=== PATIENT | male | born 1985 | race Caucasian/White ===

== ENCOUNTER 2022-10-29 12:18 | Emergency (ER) | payer OTHER, MEDICAID, SELFPAY ==
[2022-10-29 12:22] VITALS: BP 150/97; PULSE 96; RESP 18; TEMP 36.3; O2SAT 94; BMI 55.1
--- NOTE | 2022-10-29 12:41 | CRLHL7_ITS ---
For Patients: As a result of the Century Cures Act, medical imaging exams and procedure reports are released immediately into your electronic medical record. You may view this report before your referring provider. If you have questions, please contact your health care provider. INDICATION: Leg pain and swelling. TECHNIQUE: Ultrasound venous duplex lower left extremity. Compression venous exam was performed using clancy-scale, color Doppler, and spectral Doppler analysis. COMPARISON: None. FINDINGS: Deep veins: Sonographic imaging demonstrates the left common femoral, deep femoral, superficial femoral, popliteal, posterior tibial and the contralateral right common femoral veins to be fully compressible with normal color Doppler blood flow. Superficial veins: Greater saphenous vein is fully compressible. No popliteal cyst. IMPRESSION: Normal left lower extremity venous ultrasound, no sign of deep venous thrombosis. Dictated by Rajesh St MD @ 10/29/2022 4:06:20 PM (Electronically Signed)
--- NOTE | 2022-10-29 12:42 | ED_ITS ---
HPI - General Adult General Chief complaint: Extremity Pain/Injury, Lower Stated complaint: Possible blood clot L leg Time Seen by Provider: 10/29/22 12:19 History of Present Illness HPI narrative: This 36-year-old male comes in for evaluation of symptoms in his left lower extremity. He states that he developed erythema, pain, and some swelling starting yesterday morning. He does not report any specific injury event but states that he had been off of work for about a week and then return to a 10 hour shift where he was on his feet most of the time. He does not have a history of blood clot. He arrives with normal oximetry, pulse, and respirations. Related Data Home Medications Medication Instructions Recorded Confirmed gemfibrozil 600 mg tablet mg 10/29/22 hydrochlorothiazide 25 mg tablet 25 mg PO DAILY 10/29/22 10/29/22 lisinopril 10 mg tablet mg 10/29/22 Previous Rx's Medication Instructions Recorded cephalexin 500 mg capsule 500 mg PO TID 7 days #21 caps 10/29/22 Allergies Allergy/AdvReac Type Severity Reaction Status Date / Time No Known Drug Allergies Allergy Verified 07/17/22 09:19 Review of Systems Status of ROS: Reports: 10 or more systems reviewed and unremarkable except as noted in History and below Narrative: Constitutional: No fevers, no weight gain or loss. Eyes: No discharge. No vision changes. HENT: No congestion, no sore throat, no ear pain. Cardiovascular: No chest pain, no palpitations. Respiratory: No shortness of breath, no wheezes, no cough. Gastrointestinal: No abdominal pain, no vomiting, no diarrhea. Genitourinary: No dysuria, no hematuria. Musculoskeletal: Normal range of motion. Left lower extremity erythema and pain below the knee. Skin: No rashes, no pruritis. Neurological: No dizziness, weakness, sensory change, speech change. Endo/Heme/Allergies: No bruising or bleeding. No polydipsia. Pysch: no suicidality, no anxiety, no insomnia. All other systems reviewed and are negative. [facility] Medical History (Updated 10/29/22 @ 13:15 by Usama Browning MD) AOM (acute otitis media) URI (upper respiratory infection) Social History Smoking Status: Former smoker Do you use any of these nicotine containing products: None Second hand tobacco smoke exposure: No How often do you have a drink containing alcohol: never AUDIT-C Alcohol total score: 0 Non-prescribed substance use: denies use service: No Exam Narrative: Exam Narrative: Constitutional: Well-developed, well-nourished, no acute distress. HEENT: Normocephalic, atraumatic. Neck: Normal range of motion. Nontender. Supple. Heart: Regular. No murmurs. Normal rate. Intact distal pulses. Lungs: Clear to auscultation. No chest discomfort. No wheezes, rhonchi, or rales. Abdomen: Normal bowel sounds. Nontender. No rebound tenderness. Genitalia: Deferred. Back: No midline tenderness. Normal range of motion. Extremities: Normal range of motion. No injury. Left lower extremity has diffuse erythema and mild swelling starting below the knee and extending to his foot. Skin: Intact. No rash. Warm. No erythema or pallor. Neurologic: No altered sensation. No weakness. Alert and oriented. Psychiatric: No suicidality. No anxiety or depression. No insomnia. Nursing notes and vitals signs are reviewed. Const: Vital Signs, click to edit/add: Vital Signs - 24 hr 10/29/22 12:22 Temperature 97.4 F L Pulse Rate [Pulse Oximeter] 96 Respiratory Rate 18 Blood Pressure [Ri ght Upper Arm] 150/97 H Pulse Oximetry 94 Oxygen Delivery Me thod Room Air Course Vital Signs Vital signs: Initial Vital Signs Temperature 97.4 F L 10/29/22 12:22 Temperature Source Temporal Artery Scan 10/29/22 12:22 Pulse Rate 96 10/29/22 12:22 Pulse Rhythm 10/29/22 12:22 Pulse Strength 3+ Normal 10/29/22 12:22 Respiratory Rate 18 10/29/22 12:22 Blood Pressure 150/97 H 10/29/22 12:22 Blood Pressure Mean 114 10/29/22 12:22 Blood Pressure Position Sitting 10/29/22 12:22 Pulse Oximetry 94 10/29/22 12:22 Oxygen Delivery Method 10/29/22 12:22 Vital Signs Temperature 97.4 F L 10/29/22 12:22 Pulse Rate 96 10/29/22 12:22 Respiratory Rate 18 10/29/22 12:22 Blood Pressure 150/97 H 10/29/22 12:22 Pulse Oximetry 94 10/29/22 12:22 Oxygen Delivery Method 10/29/22 12:22 Temperature 97.4 F L 10/29/22 12:22 Pulse Rate 96 10/29/22 12:22 Respiratory Rate 18 10/29/22 12:22 Blood Pressure 150/97 H 10/29/22 12:22 Pulse Oximetry 94 10/29/22 12:22 Oxygen Delivery Method 10/29/22 12:22 Medical Decision Making MDM Narrative Medical decision making narrative: This patient comes in with redness and swelling with pain in his left lower extremity as described above. Ultrasound of the left lower extremity shows no sign of deep venous thrombosis. It seems more likely this is a cellulitis. The patient did receive a prescription for Keflex. I did describe signs and symptoms that would indicate a need for return and re-evaluation. Discharge Plan Discharge Clinical Impression: Cellulitis Patient Disposition: Home, Self-Care Condition: Unchanged Additional Instructions: Take medication as prescribed. Follow up with MD or return if worsening symptoms happen. Prescriptions: New cephalexin 500 mg capsule 500 mg PO TID 7 Days Qty: 21 0RF No Action gemfibrozil 600 mg tablet lisinopril 10 mg tablet hydrochlorothiazide 25 mg tablet 25 mg PO DAILY Follow Up/Referrals: Carmel Oh, [employer], [employer] [Nurse Practitioner] - Stand Alone Forms: [facility] in [facility] Info Instructions
== END 2022-10-29 13:35 | disposition home or self-care (01) ==
PROVIDERS: Emergency Provider Emergency Medicine Emergency Medical Services
DX: L03.116 Cellulitis of left lower limb (principal)
CPT/HCPCS: 93971; 99283; 99284